=== PATIENT | male | born 1995 | race American Indian/Alaskan Native ===

== ENCOUNTER 2018-06-12 13:22 | Emergency (ER) | payer OTHER ==
[2018-06-12 13:57] VITALS: TEMP 98.5
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
[2018-06-12 16:47] VITALS: BP 142/86; PULSE 82; RESP 18
[2018-06-12 16:55] VITALS: O2SAT 96
== END 2018-06-12 16:47 | disposition home or self-care (01) ==
LOC: C.ER 13:22
DX: S00.83XA Contusion of other part of head, initial encounter (principal); Y08.89XA Assault by other specified means, initial encounter; Y92.9 Unspecified place or not applicable